=== PATIENT | male | born 1965 | race Caucasian/White ===

== ENCOUNTER 2020-09-03 15:10 | Outpatient (REF) | payer MEDICARE, MEDICAID, SELFPAY | END 2020-09-03 15:11 | disposition home or self-care (01) | LOC: HO.LAB 15:10 | PROVIDERS: Visit Provider Internal Medicine | DX: Z20.822 Contact with and (suspected) exposure to COVID-19 (principal) | CPT/HCPCS: 36415; C9803; U0003; U0005 ==